=== PATIENT | male | born 2000 | race African-American/Black ===

== ENCOUNTER 2021-07-13 23:49 | Emergency (ER) | payer SELFPAY ==
[~2021-07-13] VITALS: Ht 170.2 cm; Wt 54.0 kg
[2021-07-14 01:13] VITALS: BP 169/76
--- NOTE | 2021-07-14 01:24 | PHYS DOC ---
General Adult EDM: Chief Complaint: SORE THROAT HPI: HPI: Patient is a 21 year old male presents with a chief complaint of sore throat. Patient is non-Bhutanese speaking--- he speaks Swahili. Patient is accompanied by his sister who helps translate. States patient has been complaining of sore throat x1 day. States he feels as if his throat is swelling and is having difficulty breathing. Denies any current history of cough shortness of breath fever chills. Review of Systems: Review of Systems: Constitutional: Denies fever or chills. [] Eyes: Denies change in visual acuity. [] HENT: Denies nasal congestion positive sore throat. [] Respiratory: Denies cough or shortness of breath. [] Cardiovascular: Denies chest pain or edema. [] GI: Denies abdominal pain, nausea, vomiting, bloody stools or diarrhea. [] : Denies dysuria. [] Musculoskeletal: Denies back pain or joint pain. [] Integument: Denies rash. [] Neurologic: Denies headache, focal weakness or sensory changes. [] Endocrine: Denies polyuria or polydipsia. [] Lymphatic: Denies swollen glands. [] Psychiatric: Denies depression or anxiety. [] Heart Score: C/O Chest Pain: N/A Risk Factors: Risk Factors: DM, Current or recent (<one month) smoker, HTN, HLP, family history of CAD, obesity. Risk Scores: Score 0 - 3: 2.5% MACE over next 6 weeks - Discharge Home Score 4 - 6: 20.3% MACE over next 6 weeks - Admit for Clinical Observation Score 7 - 10: 72.7% MACE over next 6 weeks - Early Invasive Strategies Physical Exam: PE: Constitutional: Well developed, well nourished, no acute distress, non-toxic appearance. [] HENT: Normocephalic, atraumatic, bilateral external ears normal, oropharynx moist, no oral exudates, nose normal. [] Pharyngeal erythema postnasal drip no exudate no midline shift Eyes: PERRLA, EOMI, conjunctiva normal, no discharge. [] Neck: Normal range of motion, no tenderness, supple, no stridor. [] Cardiovascular:Heart rate regular rhythm, no murmur [] Lungs & Thorax: Bilateral breath sounds clear to auscultation [] Abdomen: Bowel sounds normal, soft, no tenderness, no masses, no pulsatile masses. [] Skin: Warm, dry, no erythema, no rash. [] Back: No tenderness, no CVA tenderness. [] Extremities: No tenderness, no cyanosis, no clubbing, ROM intact, no edema. [] Neurologic: Alert and oriented X 3, normal motor function, normal sensory function, no focal deficits noted. [] Psychologic: Affect normal, judgement normal, mood normal. [] EKG: EKG: [] Radiology/Procedures: Radiology/Procedures: [] Course & Med Decision Making: Course & Med Decision Making Pertinent Labs and Imaging studies reviewed. (See chart for details) []will treat with decadron. Care plan discussed with patient's sister. We will treat patient with Decadron. Will prescribe Zithromax. Advised to take Tylenol and ibuprofen as needed for pain or fever. Dragon Disclaimer: [place]on Disclaimer: This electronic medical record was generated, in whole or in part, using a voice recognition dictation system. Departure Departure Impression: Primary Impression: Sore throat Disposition: HOME / SELF CARE / HOMELESS Condition: STABLE Referrals: NO PCP (PCP) Patient Instructions: Sore Throat Scripts Azithromycin (ZITHROMAX) 250 Mg Tablet 1 PKG PO UD, #6 TAB Prov: YUVAL PUENTE DO 07/14/21 YUVAL PUENTE DO Jul 14, 2021 01:24
[2021-07-14] MEDS ORDERED: AZIT250T PO (01:27)
[2021-07-14] MEDS ORDERED: DEXAMETHASONE 4 MG TABLET PO ONE (02:00)
== END 2021-07-14 01:50 | disposition home or self-care (01) ==
LOC: ER 23:49
DX: J02.9 Acute pharyngitis, unspecified (principal)
CPT/HCPCS: 99283